=== PATIENT | male | born 1970 | race Caucasian/White ===

== ENCOUNTER 2019-05-07 06:28 | Inpatient (IN) ==
[2019-05-07] MEDS ORDERED: Sodium Chloride 0.9% 1,000 ML PRIMARY IV ONE (06:45)
[2019-05-07] MEDS ORDERED: IPRATROPIUM/ALBUTEROL SULFATE 3 ML NEB NEB ONE (06:47)
[2019-05-07 07:05] LABS: BASOPHILS # (AUTO) 0.17 10*3/UL; EOSINOPHILS # (AUTO) 0.01 10*3/UL; EOSINOPHILS % (AUTO) 0.1 % (0-8); Hematocrit [HCT] 38.8 % (42.0-52.0); Hemoglobin [HGB] 12.9 g/dL (14.0-18.0); LYMPHOCYTES # (AUTO) 1.52 10*3/uL; MEAN CORPUSCULAR HGB CONC 33.2 g/dL (33-37); MEAN CORPUSCULAR VOLUME 90.2 FL (80-90); MEAN PLATELET VOLUME 9.4 FL (7.4-12.2); MONOCYTES # (AUTO) 1.29 10*3/UL (0.3-0.8); MONOCYTES % (AUTO) 7.5 % (5-15); NEUTROPHILS # (AUTO) 13.73 10*3/UL; NEUTROPHILS % (AUTO) 79.9 % (50-80)
[2019-05-07 07:08] LABS: PLATELET MORPHOLOGY COMMENT NORMAL MORPHOLOGY (NORM); RBC MORPHOLOGY COMMENT NORMAL MORPHOLOGY (NORM); WBC MORPHOLOGY COMMENT NORMAL MORPHOLOGY (NORM)
[2019-05-07 07:16] LABS: BLOOD UREA NITROGEN 10 mg/dL (7-22); SERUM ALBUMIN 4.1 g/dL (3.5-4.8)
[2019-05-07] MEDS ORDERED: cefTRIAXone Inj 2 GM in Sodium Chloride 0.9% 100 ML IV ONE (07:34)
[2019-05-07] MEDS ORDERED: LIDOCAINE W/ SODIUM BICARB 0.5 ML SYR SUBD PRN ×2 (09:14→11:27)
[2019-05-07] MEDS ORDERED: Acetaminophen 1000mg Inj 1,000 MG/100 ML VIAL IV PRN ×2 (09:14→11:31)
[2019-05-07] MEDS ORDERED: BENZONATATE 100 MG CAPSULE PO PRN ×2 (09:14→11:30)
[2019-05-07] MEDS ORDERED: ONDANSETRON 4 MG/2 ML VIAL IVP PRN ×2 (09:14→11:29)
[2019-05-07] MEDS ORDERED: KETOROLAC 15 MG/1 ML VIAL IVP PRN ×2 (09:14→11:31)
[2019-05-07] MEDS ORDERED: cefTRIAXone Inj 2 GM in Sodium Chloride 0.9% 100 ML IV SCH (09:15)
[2019-05-07] MEDS ORDERED: Sodium Chloride 0.9% 1,000 ML PRIMARY IV SCH (09:15)
[2019-05-07] MEDS ORDERED: ENOXAPARIN SODIUM 40 MG/0.4 ML SYRINGE SUBCUT SCH (09:15)
[2019-05-07] MEDS ORDERED: IPRATROPIUM/ALBUTEROL SULFATE 3 ML NEB NEB PRN (11:00)
[2019-05-07] MEDS: Sodium Chloride 0.9% 1,000 ML PRIMARY IV SCH ×2 (14:55→18:04)
[2019-05-07] MEDS: IPRATROPIUM/ALBUTEROL SULFATE 3 ML NEB NEB PRN (15:11)
[2019-05-07] MEDS ORDERED: SODIUM CHLORIDE 44 ML SPRAY ENOS PRN (15:41)
[2019-05-07] MEDS ORDERED: GUAIFENESIN 600 MG TABLET PO PRN (17:46)
[2019-05-07] MEDS: ACETAMINOPHEN 325 MG TABLET PO PRN (17:57)
[2019-05-08] MEDS: Sodium Chloride 0.9% 1,000 ML PRIMARY IV SCH (02:58)
[2019-05-08] MEDS: ACETAMINOPHEN 325 MG TABLET PO PRN (04:12)
[2019-05-08] MEDS: IPRATROPIUM/ALBUTEROL SULFATE 3 ML NEB NEB PRN (04:22)
[2019-05-08 04:50] LABS: Hematocrit [HCT] 36.3 % (42.0-52.0); Hemoglobin [HGB] 11.9 g/dL (14.0-18.0); MEAN CORPUSCULAR HGB CONC 32.8 g/dL (33-37); MEAN CORPUSCULAR VOLUME 91.7 FL (80-90); MEAN PLATELET VOLUME 9.5 FL (7.4-12.2); RED BLOOD COUNT 3.96 10^6/uL (4.70-6.10)
[2019-05-08 04:56] LABS: BLOOD UREA NITROGEN 11 mg/dL (7-22); BUN/CREATININE RATIO 15.71 (6-20); SERUM ALBUMIN 3.2 g/dL (3.5-4.8)
[2019-05-08 05:53] LABS: BAND NEUTROPHILS % 0 % (0-10); NEUTROPHILS % (MANUAL) 83 % (50-80)
[2019-05-08 05:54] LABS: BASOPHILS % (MANUAL) 1 % (0-1); EOSINOPHILS % (MANUAL) 0 % (0-8); METAMYELOCYTES % 0 %; MONOCYTES % (MANUAL) 1 % (0-12); MYELOCYTES % 0 %; PLATELET MORPHOLOGY COMMENT NORMAL MORPHOLOGY (NORM); PROMYELOCYTES % 0 %; RBC MORPHOLOGY COMMENT NORMAL MORPHOLOGY (NORM); WBC MORPHOLOGY COMMENT NORMAL MORPHOLOGY (NORM)
[2019-05-08 06:45] VITALS: BP 124/68; RESP 17; TEMP 98.5
[2019-05-08] MEDS ORDERED: cefTRIAXone Inj 2 GM in Sodium Chloride 0.9% 100 ML IV SCH (08:00)
[2019-05-08] MEDS ORDERED: ENOXAPARIN SODIUM 40 MG/0.4 ML SYRINGE SUBCUT SCH (09:00)
[2019-05-08] MEDS ORDERED: ASCORBIC ACID Chewable 500 MG TABLET PO SCH ×2 (09:00)
[2019-05-08 09:09] VITALS: O2SAT 92
== END 2019-05-08 11:16 | disposition home or self-care (01) | DRG 195 ==
LOC: ER 06:28 → MED/SURG 09:18
PROVIDERS: ADMIT Internal Medicine; ATTEND Internal Medicine